=== PATIENT | male | born 1950 | race Caucasian/White ===

== ENCOUNTER 2016-09-04 14:18 | Outpatient (CLI) | payer OTHER ==
--- NOTE | 2016-09-04 15:09 | DIAGNOSTIC IMAGING REPORT ---
PROCEDURE: CT HEAD WITHOUT CONTRAST INDICATION: MEMORY DYSFUNCTION TECHNIQUE: Noncontrast axial images with sagittal and coronal reformations. COMPARISON: None. FINDINGS: Allowing for mild motion and rotation, there are areas of low density in the white matter of the cerebral hemispheres, most compatible with mild old small vessel disease. Brain and ventricles are otherwise normal. There is no evidence of an acute process or hemorrhage. No evidence of hydrocephalous. Sinuses and mastoids are normal. IMPRESSION: 1. Findings suggest mild old small vessel changes of the white matter. 2. Otherwise negative head CT. No evidence of acute process. All CT scans at this facility use dose modulation, iterative reconstruction, and/or weight-based dosing when appropriate to reduce radiation dose to as low as reasonably achievable.
== END 2016-09-04 23:00 ==
LOC: CT SRH 14:18
DX: R90.82 White matter disease, unspecified (principal)

== ENCOUNTER 2016-10-03 00:09 | Emergency (ER) | payer OTHER ==
--- NOTE | 2016-10-03 02:04 | ED NURSING NOTES ---
Clinical Report - Nurses [facility] [address] [place] [address] 10/03/2016 0:11 Patient: LYLA QUINONEZ TRIAGE Triage time 00:16. Acuity: LEVEL 4. Chief Complaint: INJURY TO RIGHT HAND. --00:23 Lucia Gentile R.N. 00:16 10/03/16. BP: 143/87 taken on the left arm, while lying. HR: 124 (regular and tachycardic). RR: 18 (regular and unlabored). O2 saturation: 98%. Temp: 97.5 F (oral). Pain level now: 08/06. --00:23 Lucia Gentile R.N. Weight: 60.3 kg stated. Height/Length: 63 inches Per Patient. BMI: 23.6. --00:20 Lucia Gentile R.N. Medications Albuterol Inhalation, 4x a day as needed. Cardura Oral 4 mg, daily. ClonazePAM Oral, as needed (pt unsure of dose ). Levothyroxine Sodium Oral 75 mcg, daily. Lisinopril Oral 20 mg, daily. --00:21 Lucia Gentile R.N. morphine 5mg, 2x a day. PARoxetine HCl Oral (pt unsure of dose ). Prazosin HCl Oral (pt unsure of dose ). Vicodin Oral 10/325mg, 4x a day. --00:21 Lucia Gentile R.N. Allergies Iodine. Definite Severe(facial swelling, ICU admit) --00:22 Lucia Gentile R.N. History Arrived by private vehicle. Historian: patient. Accompanied by family. Primary physician (isidro). This occurred (1999). He sustained a laceration from a broken glass. ( mowing lawn, mower fell and pinned hand against ground imbedding some glass into back of hand). Treatment DIRECTOR PROSPECT: None. PAST MEDICAL HX: Tetanus status: up-to-date. Immunizations: up-to-date. SOCIAL HX: Heavy tobacco smoker (cigarette)- 1 pack per day. No alcohol use or drug use. No infectious disease exposure. ABUSE ASSESSMENT: No report of abuse. SELF HARM ASSESSMENT: A self harm assessment was performed. The patient answered "no" to the question "Have you recently felt down, depressed, or hopeless?", "Have you noticed less interest or pleasure in doing things?", "Do you have thoughts of harming or killing yourself?", "Are you here because you tried to hurt yourself?", "Have you ever tried to hurt yourself before today?", "Have you recently had thoughts about harming or killing others?" and "Do you have any dangerous items in your possession?". FALL RISK ASSESSMENT: Fall risk assessment completed. No fall risk identified. NUTRITIONAL RISK ASSESSMENT: The nutritional risk assessment revealed no deficiencies. FUNCTIONAL ASSESSMENT: Functional assessment: no impairments noted. LEARNING NEEDS ASSESSMENT: The learning needs assessment revealed no barriers. SKIN INTEGRITY ASSESSMENT: Skin integrity risk assessment completed. No skin integrity risk identified. --00:23 Lucia Gentile R.N. PROBLEMS: Rib Fracture. Fall. Osteoarthritis. Chronic back pain . Tetanus Status. Laceration. COPD - Chronic Obstructive Pulmonary Disease. Hypertension. Hypothyroidism. Ulcerative Colitis. --00:22 Lucia Gentile R.N. ADDITIONAL SURGERIES: Hernia x 2. Lt shoulder surg x 2. Rt hip surg. --00:22 Lucia Gentile R.N. Interventions ID band on patient. --00:23 Lucia Gentile R.N. PHYSICAL ASSESSMENT Ambulatory to room. GENERAL / NEURO / PSYCH: Oriented X 4. Alert. Appears in no acute distress. EXTREMITIES: Capillary refill is less than 2 seconds in the extremities. Extremity pulses are within normal limits. Extremities exhibit normal ROM. Neuro-vascular status intact to the extremity. Right hand: tenderness and deep 2.0 cm laceration with controlled bleeding localized to the dorsal aspect of the hand. SKIN: Skin intact. Skin is warm and dry. --00:24 Lucia Gentile R.N. NURSING PROGRESS NOTES Two patient identifiers checked. Call light placed in reach. Side rails up x 1. Bed placed in lowest position. Brakes of bed on. Patient ready for evaluation- chart flagged. --00:24 Lucia Gentile R.N. Wound cleansed with water and chlorhexidine. --00:24 Lucia Gentile R.N. 02:09 10/03/2016 Hydrocodone-APAP (Hydrocodone-Acetaminophen) PO 5/325 mg Tablets 1 tab given. Allergies verified, confirmed 5 rights and sedative warning given to the patient. --02:17 Lucia Gentile R.N. DISPOSITION / DISCHARGE Condition at departure: improved and stable. No learning barriers present. Discharge instructions provided and reviewed with the patient. Reviewed wound care instructions. Activity restrictions (minimal use of injured extremity) reviewed. Patient verbalized understanding. Written instructions provided in Nepali. No medication instructions. The patient was discharged home and accompanied by spouse. He left the Emergency Department ambulatory and via private vehicle. Spouse driving. --02:19 Lucia Gentile R.N. 02:10 10/03/16. BP: 136/64. HR: 91 (regular and normal rate). RR: 18 (regular and unlabored). O2 saturation: 99% on room air. Temp: deferred. Pain level now: 07/06. --02:19 Lucia Gentile R.N. Departure time: 0210. --02:19 Lucia Gentile R.N. Locked/Released at 10/03/2016 2:19 by Lucia Gentile R.N.
--- NOTE | 2016-10-03 02:04 | ED ORDER SUMMARY ---
..... Patient: LYLA QUINONEZ OrderSheet [facility] VisitID: [id number] [address] [place] [address] 65y, M Registration Date/Time: 10/03/2016 ORDER SHEET Weight: 60.3 kg (stated) Allergies: Iodine GENERAL ORDERS: MEDICATION ORDERS: Hydrocodone-APAP PO 5/325 mg (NOW, HIGH ALERT MEDICATION) (02:03 10/03/2016 Andres DIEGO) (Ack 2:08 Nagi R.NVikash) (2:17 Nagi Lowery) IV FLUIDS: ORDER SHEET NOTES: [Electronically signed by Lucia Gentile R.N. (02:19 10/03/2016)] [Electronically signed by Krish Meyers MD (02:26 10/03/2016)] [Electronically locked/signed by Lucia Gentile R.N. (02:10/03/2016)]
--- NOTE | 2016-10-03 02:04 | ED ORDER SUMMARY ---
..... Patient: LYLA QUINONEZ OrderSheet [facility] VisitID: [id number] [address] [place] [address] 65y, M Registration Date/Time: 10/03/2016 ORDER SHEET Weight: 60.3 kg (stated) Allergies: Iodine GENERAL ORDERS: MEDICATION ORDERS: Hydrocodone-APAP PO 5/325 mg (NOW, HIGH ALERT MEDICATION) (02:03 10/03/2016 Andres DIEGO) (Ack 2:08 Nagi R.NVikash) (2:17 Nagi Lowery) IV FLUIDS: ORDER SHEET NOTES: [Electronically signed by Lucia Gentile R.N. (02:19 10/03/2016)] [Electronically signed by Krish Meyers MD (02:26 10/03/2016)] [Electronically locked/signed by Lucia Gentile R.N. (02:10/03/2016)]
--- NOTE | 2016-10-03 02:04 | ED CLINICAL REPORT ---
Clinical Report - Physicians/Mid Levels [facility] [address] [place] [address] 10/03/2016 0:11 Patient: LYLA QUINONEZ Time Seen: 00:17. Arrived- By private vehicle. Historian- patient. HISTORY OF PRESENT ILLNESS Chief Complaint: Injury to the right hand. The injury happened last night at about 8 PM. The patient sustained a laceration from broken glass. Occurred at home. ( he reached underneath a turned off lawnmower and cut the backside of his hand on a piece of broken glass). Patient is experiencing moderate pain. No other injury. REVIEW OF SYSTEMS The patient sustained a single laceration to the right hand. No swelling, tingling, numbness, weakness or foreign body. No chills, fever, sweats, calf pain or chest pain. No cough, difficulty breathing, pedal edema, palpitations or abdominal pain. No constipation, diarrhea, nausea, vomiting or urinary problems. The patient has had severe back pain (chronically). It has been similar to previous symptoms. All systems otherwise negative, except as recorded above. PAST HISTORY The patient's dominant hand is the right. Tetanus immunization status is unknown. SOCIAL HISTORY Current every day heavy tobacco smoker (cigarette)- 1 pack per day. No alcohol use or drug use. FAMILY HISTORY No significant family medical history. ADDITIONAL NOTES The nursing notes have been reviewed. PHYSICAL EXAM Vital Signs: 10/03/2016 00:16 BP: 143/87. HR: 124. RR: 18. O2 saturation: 98%. Temp: 97.5 F. Pain level now: 4/10. Have been reviewed. Appearance: Alert. Head: Head atraumatic. Eyes: Pupils equal, round and reactive to light. ENT: Pharynx normal. Neck: Normal inspection. Neck supple. CVS: Normal heart rate and rhythm. Heart sounds normal. Respiratory: No respiratory distress. Breath sounds normal. Abdomen: No visible injury. Soft and nontender. Bowel sounds normal. No organomegaly. No mass. Back: Normal inspection. Skin: Skin warm and dry. Extremities: Dorsal right hand: subcutaneous 2.0 cm laceration. SEE LACERATION PROCEDURE NOTE #1. Neurovascular intact distally. No wrist injury. Neuro, Vascular and Tendons: Vascular status intact. Sensation intact. Motor intact. Tendon function intact. Neuro: No motor deficit. No sensory deficit. PROGRESS AND PROCEDURES Laceration Repair: Location: right hand. Time-out completed immediately before the procedure. Length: 2 cm. Complexity: simple (local anesthesia used and sutured). Wound depth/shape- subcutaneous and linear. Distal neuro/vascular/tendon status normal. Local anesthesia provided using 2% lidocaine no epi. Prepped with chlorhexidine. Wound explored and cleansed. Closure of skin: 4-0 nylon (5 sutures). Post-procedure: he is stable and there are no complications. Bleeding is controlled and neuro-vascular status is intact distal to the wound. Dressing applied. Tetanus immunization given. Course of Care: Patient is stable. Patient/family counseled. Old medical records reviewed. Disposition: Discharged. Condition: stable. CLINICAL IMPRESSION Single superficial laceration to the right hand. INSTRUCTIONS Protect wound and keep wound area clean. Change dressing twice daily. You may wash wounds briefly, then dry. Apply neosporin twice daily. Sutures/ethel should be removed in ten days. No driving or operating machinery while taking medication. Sedative medication was given during your visit. Limit use of your hand. Warnings: COMPLICATIONS: Complications from this condition include: possible infection, possible foreign body remaining in the wound, possible injury to a nerve, possible injury to a tendon and possible injury to a ligament. Future problems may include infection, scarring, loss of function and pain. INFECTION: Watch for signs of infection (increasing heat and redness, pus-like drainage, swelling, or increased pain). Return or see your doctor if these signs occur. GENERAL WARNINGS: Return or contact your physician immediately if your condition worsens or changes unexpectedly, if not improving as expected, or if other problems arise. Follow-up: Follow up with your doctor in ten days for suture removal. Understanding of the discharge instructions verbalized by patient. (Electronically signed by Krish Meyers MD 10/03/2016 2:26)
--- NOTE | 2016-10-03 02:27 | ED DISCHARGE INSTRUCTIONS ---
Patient: LYLA QUINONEZ General Instructions [facility] VisitID: [id number] [place] [address] 65y, M Registration Date/Time: 10/03/2016 Single superficial laceration to the right hand. INSTRUCTIONS Protect wound and keep wound area clean. Change dressing twice daily. You may wash wounds briefly, then dry. Apply neosporin twice daily. Sutures/cami should be removed in ten days. No driving or operating machinery while taking medication. Sedative medication was given during your visit. Limit use of your hand. Warnings: COMPLICATIONS: Complications from this condition include: possible infection, possible foreign body remaining in the wound, possible injury to a nerve, possible injury to a tendon and possible injury to a ligament. Future problems may include infection, scarring, loss of function and pain. INFECTION: Watch for signs of infection (increasing heat and redness, pus-like drainage, swelling, or increased pain). Return or see your doctor if these signs occur. GENERAL WARNINGS: Return or contact your physician immediately if your condition worsens or changes unexpectedly, if not improving as expected, or if other problems arise. Follow-up: Follow up with your doctor in ten days for suture removal. Understanding of the discharge instructions verbalized by patient. ADDITIONAL INFORMATION Laceration, Extremity (Sutures, Cami, Or Tape) A laceration is a cut through the skin. This will usually require stitches (sutures) or cami if it is deep. Minor cuts may be treated with surgical tape closures. Home care The following guidelines will help you care for your laceration at home: Keep the wound clean and dry. If a bandage was applied and it becomes wet or dirty, replace it. Otherwise, leave it in place for the first 24 hours, then change it once a day or as directed. If stitches or cami were used, clean the wound daily: After removing the bandage, wash the area with soap and water. Use a wet cotton swab to loosen and remove any blood or crust that forms. After cleaning, keep the wound clean and dry. Talk with your doctor before applying any antibiotic ointment to the wound. Reapply the bandage. You may remove the bandage to shower as usual after the first 24 hours, but do not soak the area in water (no swimming) until the stitches or cami are removed. If surgical tape closures were used, keep the area clean and dry. If it becomes wet, blot it dry with a towel. The doctor may prescribe an antibiotic cream or ointment to prevent infection. Do not stop taking this medication until you have finished the prescribed course or the doctor tells you to stop. The doctor may also prescribe medications for pain. Follow the doctors instructions for taking these medications. If you have chronic liver or kidney disease or ever had a stomach ulcer or GI bleeding, talk with your doctor before using these medicines. Follow-up care Follow up with your health care provider. Most skin wounds heal within ten days. However, an infection may sometimes occur despite proper treatment. Therefore, check the wound daily for the signs of infection listed below. Stitches and cami should be removed within 714 days. If surgical tape closures were used, you may remove them after 10 days, if they have not fallen off by then. Notify your doctor if you notice persistent numbness or weakness in the injured extremity. (Note:A radiologist will review any X-rays that were taken. We will notify you of any new findings that may affect your care.) When to seek medical care Get prompt medical attention if any of these occur: Increasing pain in the wound Redness, swelling, or pus coming from the wound Fever of 100.4F (38C) or higher, or as directed by your health care provider If stitches or cami come apart or fall out before your next appointment If the surgical tape closures fall off within seven days, or the wound edges re-open Bleeding not controlled by direct pressure Bandage Change If the bandage becomes wet or dirty, replace it. Otherwise, leave it in place for the first 24 hours. Then once a day: After removing the bandage, wash the area with soap and water. Use a wet cotton swab to loosen and remove any blood or crust that forms on the wound. After cleaning, apply a thin layer of antibiotic ointment or cream. Reapply the bandage. You may shower as usual after the first 24 hours. If the bandage is on an arm or leg, cover it with a plastic bag rubber banded at both ends before showering. No tub baths or swimming until the bandage is removed and the wound healed (at least 7 days). You have been given the following additional information: Laceration, Extrem (Suture, Staple, Or Tape) Dressing Change No driving or operating machinery while taking medication. Sedative medication was given during your visit. Limit use of your hand. (Electronically signed by Krish Meyers MD 10/03/2016 2:26)
--- NOTE | 2016-10-03 02:27 | ED MED RECONCILIATION SUMMARY ---
Patient: LYLA QUINONEZ Medication Reconciliation Report [facility] VisitID: [id number] [address] [place] [address] 65y, M Registration Date/Time: 10/03/2016 Weight: 60.3 kg Height/Length: 63 in. BMI: 23.6 ALLERGIES: Iodine The patient's Home Medications are listed below: THE FOLLOWING MEDICATIONS NEED TO BE RECONCILED: Albuterol Inhalation, 4x a day Cardura Oral 4 mg, daily ClonazePAM Oral, pt unsure of dose Levothyroxine Sodium Oral 75 mcg, daily Lisinopril Oral 20 mg, daily morphine 5mg, 2x a day PARoxetine HCl Oral, pt unsure of dose Prazosin HCl Oral, pt unsure of dose Vicodin Oral 10/325mg, 4x a day The source(s) of the original Home Medication information: Not obtained. The following Medications were given to the patient in the Emergency Department: Hydrocodone-APAP [PO] PO 1 tab, administered: 10/03/2016 2:09:00 AM The following Medications were prescribed to the patient: None.
--- NOTE | 2016-10-03 02:27 | ED MAR SUMMARY ---
..... Medication Administration Record [address] [place] [address] Patient: LYLA QUINONEZ Visit ID: [id number] 65y, M Weight: 60.3 kg Height/Length: 63 in BMI: 23.6 ALLERGIES: Iodine Given 02:09 10/03/2016 Lucia Gentile R.N. Medication Administered: HYDROCODONE-APAP [PO] (HYDROCODONE-ACETAMINOPHEN), Dose: 1 tab 5/325 mg Tablets PO. Medication Ordered: Hydrocodone-APAP PO 5/325 mg (NOW, HIGH ALERT MEDICATION).
--- NOTE | 2016-10-03 02:27 | ED MAR SUMMARY ---
..... Medication Administration Record [address] [place] [address] Patient: LYLA QUINONEZ Visit ID: [id number] 65y, M Weight: 60.3 kg Height/Length: 63 in BMI: 23.6 ALLERGIES: Iodine Given 02:09 10/03/2016 Lucia Gentile R.N. Medication Administered: HYDROCODONE-APAP [PO] (HYDROCODONE-ACETAMINOPHEN), Dose: 1 tab 5/325 mg Tablets PO. Medication Ordered: Hydrocodone-APAP PO 5/325 mg (NOW, HIGH ALERT MEDICATION).
--- NOTE | 2016-10-03 02:27 | ED MED RECONCILIATION SUMMARY ---
Patient: LYLA QUINONEZ Medication Reconciliation Report [facility] VisitID: [id number] [address] [place] [address] 65y, M Registration Date/Time: 10/03/2016 Weight: 60.3 kg Height/Length: 63 in. BMI: 23.6 ALLERGIES: Iodine The patient's Home Medications are listed below: THE FOLLOWING MEDICATIONS NEED TO BE RECONCILED: Albuterol Inhalation, 4x a day Cardura Oral 4 mg, daily ClonazePAM Oral, pt unsure of dose Levothyroxine Sodium Oral 75 mcg, daily Lisinopril Oral 20 mg, daily morphine 5mg, 2x a day PARoxetine HCl Oral, pt unsure of dose Prazosin HCl Oral, pt unsure of dose Vicodin Oral 10/325mg, 4x a day The source(s) of the original Home Medication information: Not obtained. The following Medications were given to the patient in the Emergency Department: Hydrocodone-APAP [PO] PO 1 tab, administered: 10/03/2016 2:09:00 AM The following Medications were prescribed to the patient: None.
== END 2016-10-03 02:10 | disposition home or self-care (01) ==
LOC: ED SRH 00:09
DX: S61.411A Laceration without foreign body of right hand, initial encounter (principal); W25.XXXA Contact with sharp glass, initial encounter; Y93.H2 Activity, gardening and landscaping; Y92.009 Unspecified place in unspecified non-institutional (private) residence as the place of occurrence of the external cause; I10 Essential (primary) hypertension; J44.9 Chronic obstructive pulmonary disease, unspecified; F17.210 Nicotine dependence, cigarettes, uncomplicated; Z79.899 Other long term (current) drug therapy